=== PATIENT | male | born 1960 | race Caucasian/White ===

== ENCOUNTER → 2017-10-06 | Outpatient (CLI) | payer OTHER ==
[2017-10-06 12:50] LABS: BASO % 0.3 %; BASO ABS # 0.02 K/uL (0-0.2); EOS % 4.9 %; EOS ABS # 0.35 K/uL (0-0.5); HEMATOCRIT 48.6 % (42-52); HEMOGLOBIN 16.4 g/dL (14.0-18.0); IG# 0.01 K/uL (0.00-0.02); LYMPH % 22.4 %; LYMPH ABS # 1.61 K/uL (1.2-3.4); MEAN CORPUSCULAR HEMOGLOBIN 33.7 pg (25-34); MEAN CORPUSCULAR HGB CONC 33.7 g/dl (32-36); MEAN PLATELET VOLUME 11.1 fL (7.4-10.4); MONO % 8.2 %; MONO ABS # 0.59 K/uL (0.11-0.59); NEUT % 64.1 %; PLATELET COUNT 274 K/uL (130-400); RED CELL DISTRIBUTION WIDTH CV 12.8 % (11.5-14.5); RED CELL DISTRIBUTION WIDTH SD 46.4 fL (36.4-46.3); WHITE BLOOD COUNT 7.18 K/uL (4.8-10.8)
[2017-10-06 13:21] LABS: ALBUMIN 3.2 gm/dl (3.4-5.0); ALKALINE PHOSPHATASE 87 U/L (45-117); ALT/SGPT 34 U/L (12-78); AST/SGOT 16 U/L (15-37); BLOOD UREA NITROGEN 15 mg/dl (7-18); CALCIUM 8.7 mg/dl (8.5-10.1); CARBON DIOXIDE 27 mmol/L (21-32); CHOLESTEROL 147 mg/dl (0-200); CREATININE 0.96 mg/dl (0.60-1.40); GLUCOSE 113 mg/dl (70-99); LDL CHOLESTEROL CALCULATED 90 mg/dl; POTASSIUM 3.8 mmol/L (3.5-5.1); SODIUM 139 mmol/L (136-145)
[2017-10-06 13:26] LABS: TOTAL PROTEIN 7.9 gm/dl (6.4-8.2)
== END | disposition home or self-care (01) ==
LOC: C.LABBFT 07:41
PROVIDERS: ATTEND Internal Medicine
DX: I10 Essential (primary) hypertension (principal); Z12.5 Encounter for screening for malignant neoplasm of prostate

== ENCOUNTER 2019-06-28 04:50 | Inpatient (IN) ==
--- NOTE | 2019-05-20 11:55 | Anesthesiology Consultation ---
Date of Service May 20, 2019 Assessment & Plan (1) Encounter for pre-operative examination: Chart Review Chart Review: Pending: Refer to Additional Notes / Consult section (awaiting preop testing results) History Surgery Operation Date: 06/28/19 07:00 Proposed Procedures p Left Total Hip Arthroplasty - Jax Gutierrez MD Height/Weight Height: 6 ft Weight: 121.7 kg Allergies Allergy/AdvReac Type Severity Reaction Status Date / Time No Known Allergies Allergy Verified 05/13/19 08:59 Medications Home Medications Medication Instructions Recorded Confirmed Last Taken krill oil 500 mg capsule 1 cap PO QAM cap 01/26/19 05/13/19 Unknown losartan 50 mg tablet 50 mg PO QPM #90 tab 01/26/19 05/13/19 Unknown acetaminophen [Tylenol Arthritis 1,300 mg PO Q12H PRN 05/13/19 05/13/19 Unknown Pain] glucosamine-chondroitin [Osteo 1 tab PO BID 05/13/19 05/13/19 Unknown Bi-Flex] meloxicam 7.5 mg PO QAM 05/13/19 05/13/19 Unknown multivitamin 1 tab PO QAM 05/13/19 05/13/19 Unknown Past Medical History Medical History Hypertension Exercise / Class Metabolic Activity II 4-5 Yardwork/Stairs/Walk up hill Past Family History Family History Father Family history of diabetes mellitus Past Surgical History Surgical History History of colonoscopy History of herniorrhaphy AGE 3 Social History Smoking Status: Never smoker Do You Dip or Chew Tobacco: No Hx Alcohol Use: No Hx Substance Use: No Physical Exam Vital Signs Last Vital Signs Temp 97.8 F 05/20/19 11:43 Pulse 70 05/20/19 11:43 Resp 18 05/20/19 11:43 BP 130/79 05/20/19 11:43 Pulse Ox 96 05/20/19 11:43 ENMT Mouth: no dentition abnormality Thyromental Distance: > or= 3.5 Finger Breadths Mallampati Class: II Neck normal visual inspection Respiratory normal respiratory effort Auscultation: lungs clear to auscultation bilaterally Cardiovascular Rate/Rhythm: regular rate and regular rhythm Testing Electrocardiogram Date: 05/20/19 Findings: + NSR @ (70 bpm)
--- NOTE | 2019-05-20 12:30 | XRay Report ---
XR chest Pre-admission PA/Lat HISTORY: Preop. COMPARISON: None. FINDINGS: The lungs are clear. Cardiac silhouette is normal in size. No pleural effusions. No pneumot horax. IMPRESSION: No acute process. Electronically signed by: Jaun Sabillon M.D. 05/20/2019 12:28 PM
[2019-05-20 14:00] LABS: Basophils # (auto) 0.03 K/uL (0-0.2); Basophils % (auto) 0.3 %; Eosinophils # (auto) 0.54 K/uL (0-0.5); Eosinophils % (auto) 5.2 %; Hematocrit (blood only) 46.7 % (42-52); Hemoglobin 16.2 g/dL (14.0-18.0); Immature Granulocytes # (auto) 0.02 K/uL (0.00-0.02); Immature Granulocytes % (auto) 0.2 %; Lymphocytes # (auto) 2.04 K/uL (1.2-3.4); Lymphocytes % (auto) 19.8 %; Mean Corpuscular Hemoglobin 34.7 pg (25-34); Mean Corpuscular Hgb Conc 34.7 g/dL (32-36); Monocytes # (auto) 1.17 K/uL (0.11-0.59); Monocytes % (auto) 11.4 %; Neutrophils % (auto) 63.1 %; Platelet Count 271 K/uL (130-400); RDW Coefficient of Variation 13.3 % (11.5-14.5); RDW Standard Deviation 48.3 fL (36.4-46.3); Red Blood Count 4.67 M/uL (4.7-6.1)
[2019-05-20 14:10] LABS: Partial Thromboplastin Time 27.3 Seconds (21.0-31.0); Prothrombin Time 10.6 Seconds (9.0-12.0)
[2019-05-20 14:23] LABS: Calcium 8.8 mg/dl (8.5-10.1); Est GFR (African American) 109.2; Est GFR (Non-African American) 94.3; Potassium 4.6 mmol/L (3.5-5.1)
--- NOTE | 2019-06-24 18:05 | History and Physical Report ---
DATE OF ADMISSION: 06/28/2019 CHIEF COMPLAINT: Left hip pain. HISTORY OF PRESENT ILLNESS: A 59-year-old gentleman who is referred by my partner for treatment of his left hip. He has got 2-year history of gradually increasing pain and discomfort in his left hip. He has been through extensive conservative treatment over the past years. He was initially treated at [facility] with injections, which gave him some temporary relief only. His symptoms progressed since then. He describes buttock pain, groin pain, thigh pain. He limps more as the day goes on. He has nighttime discomfort. He has difficulty putting his shoes and socks on. He would like to have his left hip fixed. PAST MEDICAL HISTORY: Significant for: 1. Hypertension. 2. Sleep apnea. 3. Mild obesity, BMI of 36. 4. Low back pain. PAST SURGICAL HISTORY: Includes herniorrhaphy. ALLERGIES: None. CURRENT MEDICATIONS: 1. Centrum Silver. 2. Fish oil. 3. Osteo Bi-Flex. 4. Losartan. 5. Mobic. SOCIAL HISTORY: A 59-year-old male. He is . No significant drug or alcohol use. FAMILY HISTORY: Noncontributory. REVIEW OF HISTORY: Negative for diabetes, neurologic problem, vascular problems or bleeding disorders. Denies any chest pain or shortness of breath. No history of DVT or PE. No known bleeding problems. PHYSICAL EXAMINATION: GENERAL: Reveals a healthy, pleasant middle-aged male who looks to be in excellent health. HEENT: Benign. NECK: Supple, no lymphadenopathy. LUNGS: Clear to auscultation. HEART: Has a regular rate and rhythm. ABDOMEN: Soft, nontender, nondistended. EXTREMITIES: Grossly neurovascularly intact except as follows: Examination of the left hip reveals the patient ambulates with a significant limp. He limps on his left side. Leg lengths clinically appear pretty equal. Hip is very stiff. He can internally rotate to -15 and external rotation to about 20 degrees. He has pain with any type of hip internal rotation. No knee effusion. Normal knee motion. He is neurologically intact. X-RAYS: X-rays of the left hip were reviewed. It shows advanced left hip DJD. He has got complete loss of his superior joint space. He has got collapse of his femoral head with flattening of the femoral head and cystic changes on the femoral and acetabular sides. He has got osteophytes around the femoral head and acetabulum. ASSESSMENT: A 59-year-old male with a 2-year history of increasing left hip pain and discomfort, unresponsive to conservative treatment. He would like to have his hip fixed. PLAN: We will take him to the operating room and do a left total hip replacement. The risks and benefits of this procedure were explained to the patient including but not limited to DVT, PE, , infection, neurological injury, vascular injury, bleeding problem, pain, limited range of motion, stiffness, failure to relieve symptoms, incomplete relief of symptoms, need for further surgery in the future, fracture, leg length inequality, nerve palsy, dislocation, need for revision surgery, etc. The patient understands and desires to proceed. Informed consent was obtained. As far as discharge plans, he is planning to be discharged to home using [facility] home health program.
[2019-06-28] MEDS ORDERED: LR 500ML BOLUS, THEN 15ML/HR IV SCH (06:00)
[2019-06-28] MEDS ORDERED: CEFAZOLIN 2000MG 2,000 MG/15 ML SYR IV SCH (06:00)
[2019-06-28] MEDS ORDERED: TRANEXAMIC ACID 1,000 MG **IV Pre-op IV SCH (06:00)
[2019-06-28] MEDS ORDERED: LR 60ML/HR IV SCH (06:00)
[2019-06-28] MEDS ORDERED: METOCLOPRAMIDE HCL 10 MG TABLET PO SCH (06:00)
[2019-06-28] MEDS ORDERED: ACETAMINOPHEN 500 MG TAB PO SCH (06:00)
[2019-06-28] MEDS ORDERED: FAMOTIDINE 20 MG TAB PO SCH (06:00)
[2019-06-28] MEDS ORDERED: SCOPOLAMINE 1.5 MG TDSY TD SCH (06:00)
[2019-06-28] MEDS ORDERED: GABAPENTIN 600 MG DOSE PO SCH (06:00)
[2019-06-28] MEDS ORDERED: CEFAZOLIN 3000MG 72.5 ML IV SCH (06:00)
[2019-06-28] MEDS ORDERED: BUPIVACAINE 0.5 % 5 MG/1 ML PF 10ML VIAL ONE (06:07)
[2019-06-28] MEDS ORDERED: MoRPHine SULFATE PF 1 MG/ML 10 ML AMP/VIAL ONE (06:28)
[2019-06-28] MEDS ORDERED: fentaNYL citrate 100 MCG/2 ML VIAL ONE (06:29)
[2019-06-28] MEDS ORDERED: MIDAZOLAM HCL 1 MG/ML 2ML VIAL ONE (06:29)
[2019-06-28] MEDS ORDERED: LIDOCAINE HCL 2% 2 ML VIAL/AMP(20MG/ML) INFIL ONE (06:30)
[2019-06-28] MEDS ORDERED: BACITRACIN INJ 50,000 UNIT VIAL ONE (06:30)
[2019-06-28] MEDS ORDERED: EPINEPHrine INJ 1 MG/ML AMP ONE (06:30)
[2019-06-28] MEDS ORDERED: PROPOFOL IV EMULSION 10 MG/ML 20 ML VIAL IV ONE (06:30)
[2019-06-28] MEDS ORDERED: BUPIVACAINE 0.5 % 5 MG/1 ML MPF 30ML VIAL ONE (06:30)
[2019-06-28] MEDS ORDERED: ONDANSETRON INJ 2 MG/ML 2 ML VIAL ONE (06:30)
--- NOTE | 2019-06-28 06:54 | History & Physical Bridge Note ---
Date of Service June 28, 2019 History & Physical Bridge Note I have examined the patient, reviewed the History & Physical and in the interval since the performance of the History & Physical I have noted the following changes of clinical significance: no changes noted
[2019-06-28] MEDS ORDERED: PHENYLEPHRINE 100MCG/ML 5ML SYR ONE (07:24)
[2019-06-28] MEDS ORDERED: ePHEDrine sulfate 50 MG/ML AMP IV PRN (07:25)
[2019-06-28] MEDS ORDERED: LACTATED RINGER'S 500 ML IV PRN (07:25)
[2019-06-28] MEDS ORDERED: MoRPHine SULFATE PF 1 MG/ML 10 ML AMP/VIAL INT SPINAL ONE (07:25)
[2019-06-28] MEDS ORDERED: NALOXONE HCL 0.08 MG in SYRINGE 1.8 ML IV PRN (07:25)
[2019-06-28] MEDS ORDERED: ONDANSETRON INJ 2 MG/ML 2 ML VIAL IV PRN (07:25)
[2019-06-28] MEDS ORDERED: MEPERIDINE HCL 25 MG/ML CARP IV PRN (07:25)
[2019-06-28] MEDS ORDERED: DiphenhydrAMINE HCL 50 MG/ML VIAL IV PRN (07:25)
[2019-06-28] MEDS ORDERED: NALBUPHINE HCL INJ 10 MG/ML AMP IV PRN (07:25)
[2019-06-28] MEDS ORDERED: NALOXONE HCL 1 MG in SODIUM CHLORIDE 0.9% 1000ML 1,000 ML IV PRN (07:25)
[2019-06-28] MEDS ORDERED: NALOXONE HCL 0.4 MG/1 ML VIAL/CARP IV PRN ×2 (07:25→10:01)
[2019-06-28] MEDS ORDERED: PROMETHAZINE HCL 12.5 MG in SODIUM CHLORIDE 0.9% 50 ML IV PRN (07:25)
[2019-06-28] MEDS ORDERED: KETOROLAC 30 MG/ML VIAL IV PRN (07:25)
[2019-06-28] MEDS ORDERED: DC INTRASPINAL MORPHINE SCH (07:30)
[2019-06-28] MEDS ORDERED: NO NARCOTICS OR SEDATIVES SCH (07:30)
[2019-06-28] MEDS ORDERED: SODIUM CHLORIDE 0.9% 1000ML 1,000 ML IV SCH (07:30)
[2019-06-28] MEDS ORDERED: SODIUM CHLORIDE 0.9% INJ 10 ML VIAL ONE (07:32)
[2019-06-28] MEDS ORDERED: ePHEDrine sulfate 50 MG/ML AMP ONE (07:32)
[2019-06-28] MEDS ORDERED: PHENYLEPHRINE HCL 10 MG/ML VIAL ONE (07:33)
--- NOTE | 2019-06-28 08:34 | Post Operative Brief Note ---
PG Immediate Post Op with CF Date of Surgery June 28, 2019 Pre & Post Diagnosis Operation Date: 06/28/19 07:00 Pre-Op Diagnosis: Left Hip Degenerative Joint Disease Post-Op Diagnosis: Left Hip Degenerative Joint Disease I identified the patient and participated in the time-out.: Yes Procedure Operation Date: 06/28/19 07:00 Actual Procedures p Left Total Hip Arthroplasty, Uncemented(Left) - Jax Gutierrez MD Surgeon Jax Gutierrez MD Stone Banker Maureen, PAC Estimated Blood Loss 300 Findings Consistent with Post-Op Diagnosis Fluids 1000 cc Specimens Specimen Description: Permanent Specimen A: Left femoral head Drains Pendleton Catheter Anesthesia Type Spinal MAC Complications none Disposition Accompanied Patient To Recovery: Yes Disposition: Recovery Room
--- NOTE | 2019-06-28 09:01 | Operative Report ---
DATE OF OPERATION: 06/28/2019 SURGEON: Jax Gutierrez MD COAGULATING BATH MIXER: DILMA Mejia PREOPERATIVE DIAGNOSIS: Left hip degenerative joint disease. POSTOPERATIVE DIAGNOSIS: Left hip degenerative joint disease. PROCEDURE PERFORMED: Left uncemented ceramic on highly cross-linked polyethylene total hip arthroplasty. COMPLICATIONS: None. ESTIMATED BLOOD LOSS: 300 mL. FLUID REPLACEMENT: 1000 mL crystalloid fluid replacement. ANESTHESIA: Spinal. DRAINS: None. SPECIMENS: Left femoral head sent for pathology. OPERATIVE INDICATIONS: The patient is a 59-year-old gentleman who has had a 2-year history of gradually increasing left hip pain and discomfort that has progressed over time. He failed conservative care. X-rays showed advanced hip DJD. He elected to proceed with surgical treatment. OPERATIVE FINDINGS: Operative findings revealed advanced left hip DJD. He had grade 4 [id number] disease of the femoral head and acetabulum. He had a very large anterior acetabular osteophytes and a very stiff hip. OPERATIVE IMPLANTS: Operative implants consisted of: 1. Biomet G7 size 58 mm acetabular shell. 2. A 6.5 cancellous acetabular screws, one at 35 mm length and one at 25 mm length. 3. An apex hole eliminator. 4. A Biomet highly cross-linked polyethylene liner with a 58 mm outer diameter and 36 mm inner diameter. 5. DePuy Corail size 14 KLA femoral stem. 6. A +12/36 mm ceramic articular ball. OPERATIVE PROCEDURE: The patient was taken to the operating room, identified and placed on the operating table in supine position. All contact areas were appropriately padded. IV antibiotics provided by anesthesia team. A spinal anesthetic had been implemented in the holding area. Pendleton catheter was placed in sterile fashion. The patient was then placed in the right lateral decubitus position. An axillary roll was placed. [facility] hip positioner was used for positioning. The left hip and leg were then prepped and draped in usual sterile fashion. A posterolateral approach to the left hip was then performed through a curvilinear incision centered over the greater trochanter. Sharp dissection was carried through subcutaneous tissue down to the level of the IT band and gluteal fascia. The IT band and gluteal fascia were incised longitudinally in line with the skin incision. The underlying greater trochanteric bursa was excised. The piriformis and external rotators were tagged and taken off the posterior aspect of the hip joint capsule. Great care was taken throughout the procedure to protect the sciatic nerve at all times. Posterior capsulotomy was then performed leaving a large flap for later repair. Hip was internally rotated and dislocated. Femoral neck osteotomy cut was made with the final cut 1 cm above the lesser trochanter. Femoral head was removed and sent for pathology. The femur was retracted anteriorly. Attention was then drawn to the acetabulum. The acetabular labrum was excised. The pulvinar fat was excised. Sequential reaming of the acetabulum was then performed beginning with a size 47 and progressing up to 57. A 58 mm Biomet G7 acetabular shell was then placed in about 40 degrees of lateral opening and 20 degrees of anteversion. It was fixed with two 6.5 cancellous acetabular screws. Large anterior osteophytes were removed. A trial liner was placed. Attention was then drawn to the femur. The proximal femur was entered with a [employer] cutter followed by canal finder. I then broached beginning with a size 8 and progressing up to a 14. We got excellent fit at 14. Calcar reamer was used to smoothen off the calcar. I then trialed the hip and the +5 articular ball was fairly stable, but the soft tissue tension was quite lax a little over a centimeter of shuck. I therefore elected to place a longer neck. We placed a +12 neck which seemed to recreate soft tissue tension appropriately. Hip was fully stable in full extension and external rotation and flexion to 90 degrees, internal rotation over [address] I elected to place these implants. All trial implants were removed. An apex hole eliminator was placed. Highly cross-linked polyethylene liner was placed. A DePuy Corail size 14 KLA femoral stem was impacted in position. A +12/36 mm ceramic articular ball was placed and the hip was located. Hip was once again found to be stable. Attention was then drawn toward closing. The wound was irrigated with copious amounts of pulsatile lavage solution. I did inject locally with 60 mL of 0.5% Marcaine with epinephrine. The patient did receive 1 gram of tranexamic acid before the procedure started. I irrigated again. The posterior capsule and external rotators were then repaired through drill holes in the posterior trochanter with #2 Ti-Cron suture. The IT band and gluteal fascia were then closed with #1 PDS suture in running fashion. Subcutaneous tissue was then closed with 2 layers, the deep layer #2 Vicryl suture in a buried interrupted fashion and subcutaneous tissues with 2-0 Dexon suture in a buried interrupted fashion. Skin was closed with skin montez. Leg was then cleaned, dried and a sterile dressing of Xeroform, 4 x 4, sterile ABD pad and a Ioban dressing was then placed over the bandage. The patient was then transferred to the recovery room in stable condition. The patient tolerated the procedure well with no complications. All needle and sponge counts were correct at the end of the operation. I attest to the content of the Intraoperative Record and any orders documented therein. Any exception s are noted below.
--- NOTE | 2019-06-28 09:32 | Anesthesiology Progress Note ---
Date of Service June 28, 2019 Anesthesia Post Procedure Vital Signs Vital Signs: Temp Pulse Pulse Resp BP BP Pulse Ox 06/28/19 09:25 72 15 98/56 L 99 06/28/19 09:15 72 14 105/58 L 97 06/28/19 09:05 70 19 93/62 L 98 06/28/19 08:55 72 15 99/61 L 93 06/28/19 08:45 70 16 104/64 96 06/28/19 08:35 36.2 C L 93 H 18 84/44 L 93 06/28/19 05:36 36.6 C 84 20 147/91 H 96 Pain Intensity Left Hip: Pain Intensity: 0 Transfer of Care Handoff Completed per policy Notes Mental Status: alert / awake / arousable Patient Amnestic to Procedure: Yes Nausea / Vomiting: adequately controlled Pain: adequately controlled Airway Patency, RR, SpO2: stable & adequate BP & HR: stable & adequate Hydration State: stable & adequate Anesthetic Complications: no major complications apparent
--- NOTE | 2019-06-28 09:35 | XRay Report ---
XR hip 1V LT w pelvis CLINICAL HISTORY: 59 years-old Male presenting with IN PACU - A/P PELVIS and LATERAL HIP . TECHNIQUE: Single frontal view of the pelvis and crosstable lateral view of the left hip were obtaine d. COMPARISON: 05/20/2019. FINDINGS: There has been postsurgical changes of total left hip arthroplasty. Expected soft tissue emphysema. N o periprosthetic lucency or fracture. No malalignment. Overlying skin montez noted. Remainder of the bony pelvis intact. IMPRESSION: Expected postsurgical changes status post total left hip arthroplasty. Electronically signed by: John Cramer M.D. 06/28/2019 9:33 AM
[2019-06-28] MEDS ORDERED: bisacodyL 10 MG SUPP PR PRN (10:01)
[2019-06-28] MEDS ORDERED: MAGNESIUM HYDROXIDE SUSP 30 ML UDC PO PRN (10:01)
[2019-06-28] MEDS ORDERED: NON-FORMULARY MEDICATION (Krill Oil 1 CAP) PO SCH (10:01)
[2019-06-28] MEDS ORDERED: ALUMINUM/MAGNESIUM SUSP 30 ML UDC PO PRN (10:01)
[2019-06-28] MEDS ORDERED: TAMSULOSIN HCL 0.4 MG CAP PO PRN (10:01)
[2019-06-28] MEDS ORDERED: MULTIVITAMIN TAB PO SCH (10:01)
[2019-06-28] MEDS: SODIUM CHLORIDE 0.9% 1000ML 1,000 ML IV SCH ×2 (11:17→18:06)
[2019-06-28] MEDS: LOSARTAN POTASSIUM 50 MG TAB PO SCH (11:24)
[2019-06-28] MEDS: ASPIRIN 81 MG ECTAB PO SCH ×2 (11:24→21:09)
[2019-06-28] MEDS: MULTIVITAMIN TAB PO SCH (11:24)
[2019-06-28] MEDS: DOCUSATE SODIUM 100 MG CAP PO SCH ×2 (11:24→21:09)
[2019-06-28] MEDS: ACETAMINOPHEN 500 MG TAB PO SCH ×2 (13:57→21:09)
[2019-06-28] MEDS: CEFAZOLIN 2000MG 2,000 MG/15 ML SYR IV SCH ×2 (14:01→21:58)
[2019-06-28] MEDS ORDERED: TRANEXAMIC ACID 1,000 MG in 0.9 % SODIUM CHLORIDE 100 ML IV SCH (14:36)
[2019-06-28] MEDS: CHECK SCOPOLAMINE PATCH PLACEMENT SCH (15:22)
--- NOTE | 2019-06-28 15:38 | Progress Note ---
DATE: 06/28/2019 SUBJECTIVE: A 59-year-old gentleman now postop from a right total hip replacement. He is doing well. Not having any pain yet. Just feeling tired and little worn out. No chest pain or shortness of breath. Not feeling dizzy or lightheaded. OBJECTIVE: VITAL SIGNS: Temperature 35.0. GENERAL: Pleasant elderly male. He is sitting on bed, looks quite comfortable. He is dozing off here and there, but easily arousable and appropriate. LUNGS: Clear to auscultation. HEART: Has regular rate and rhythm. ABDOMEN: Soft, nontender, nondistended. EXTREMITIES: Grossly neurovascularly intact except as follows. Examination of the left hip reveals the leg lengths to be equal. Dressing is clean, dry and intact. Hip is located. He can dorsiflex and plantarflex his foot appropriately. He is neurologically intact. X-RAYS: X-rays of the left hip from recovery room reviewed. It shows left uncemented total hip arthroplasty. Components looked to be in good position. No signs of problems. ASSESSMENT: A 59-year-old gentleman postop from a left hip replacement, doing well. Pain is controlled. Hip is located. He is neurologically intact. PLAN: 1. DVT prophylaxis including thigh-high TEDs, SCDs, and aspirin twice a day. 2. PT/OT. Weight bear as tolerated. Left total hip protocol. 3. Pain control. Doing well with current pain regimen. 4. IV antibiotics x24 hours. 5. Disposition: Plan to discharge to home with some home health once adequately recovered and medically stable.
[2019-06-28] MEDS: FERROUS GLUCONATE 324 MG TAB PO SCH (17:15)
[2019-06-28] MEDS: ASCORBIC ACID 500 MG TAB PO SCH (17:15)
[2019-06-28] MEDS: SENNA 8.6 MG TAB PO SCH (21:09)
[2019-06-29] MEDS: CHECK SCOPOLAMINE PATCH PLACEMENT SCH (00:01)
[2019-06-29] MEDS: SODIUM CHLORIDE 0.9% 1000ML 1,000 ML IV SCH (00:56)
[2019-06-29] MEDS ORDERED: ONDANSETRON INJ 2 MG/ML 2 ML VIAL IV PRN (01:27)
[2019-06-29] MEDS ORDERED: TRAMADOL HCL 50 MG TABLET PO PRN (01:27)
[2019-06-29] MEDS ORDERED: METOCLOPRAMIDE HCL INJ 5 MG/ML 2 ML VIAL IV PRN (01:27)
[2019-06-29] MEDS ORDERED: HYDROmorphone INJ 0.5 MG/0.5 ML SYR IV PRN (01:27)
[2019-06-29] MEDS: KETOROLAC 30 MG/ML VIAL IV SCH ×4 (02:23→19:12)
[2019-06-29 05:28] LABS: Basophils # (auto) 0.01 K/uL (0-0.2); Basophils % (auto) 0.1 %; Eosinophils # (auto) 0.08 K/uL (0-0.5); Eosinophils % (auto) 0.7 %; Hematocrit (blood only) 39.1 % (42-52); Hemoglobin 13.3 g/dL (14.0-18.0); Immature Granulocytes # (auto) 0.03 K/uL (0.00-0.02); Immature Granulocytes % (auto) 0.3 %; Lymphocytes % (auto) 13.3 %; Mean Corpuscular Hemoglobin 34.5 pg (25-34); Mean Corpuscular Volume 101.6 fL (80-100); Mean Platelet Volume 10.1 fL (7.4-10.4); Monocytes # (auto) 1.62 K/uL (0.11-0.59); Monocytes % (auto) 14.3 %; Neutrophils # (auto) 8.07 K/uL (1.4-6.5); Neutrophils % (auto) 71.3 %; Platelet Count 191 K/uL (130-400); RDW Coefficient of Variation 13.2 % (11.5-14.5); RDW Standard Deviation 49.3 fL (36.4-46.3); Red Blood Count 3.85 M/uL (4.7-6.1); White Blood Count 11.31 K/uL (4.8-10.8)
[2019-06-29] MEDS: ACETAMINOPHEN 500 MG TAB PO SCH ×3 (05:58→21:19)
[2019-06-29 06:00] LABS: BUN Creatinine Ratio 17.3 (10-20); Calcium 8.1 mg/dl (8.5-10.1); Creatinine Clr Calc Pharmacy 110.7 ml/min; Est GFR (African American) 99.2; Est GFR (Non-African American) 85.6; Potassium 4.1 mmol/L (3.5-5.1)
[2019-06-29] MEDS: FERROUS GLUCONATE 324 MG TAB PO SCH ×2 (08:10→17:04)
[2019-06-29] MEDS: ASCORBIC ACID 500 MG TAB PO SCH ×2 (08:10→17:04)
[2019-06-29] MEDS: ASPIRIN 81 MG ECTAB PO SCH ×2 (08:10→21:19)
[2019-06-29] MEDS: DOCUSATE SODIUM 100 MG CAP PO SCH ×2 (08:10→21:20)
[2019-06-29] MEDS: LOSARTAN POTASSIUM 50 MG TAB PO SCH (08:10)
[2019-06-29] MEDS: MULTIVITAMIN TAB PO SCH (08:10)
--- NOTE | 2019-06-29 12:41 | Progress Note ---
DATE: 06/29/2019 SUBJECTIVE: A 59-year-old gentleman postop day #1 from a left hip replacement. He is doing well. Pain has been very well controlled. Therapy is going okay. No chest pain or shortness of breath. Not feeling dizzy or lightheaded. OBJECTIVE: VITAL SIGNS: Temperature 36.8. Vital signs stable. GENERAL: Shows a pleasant, middle-aged male. He is sitting in his bedside chair, looks quite comfortable. EXTREMITIES: Examination of the left hip reveals the dressings to be clean, dry and intact. Thigh is soft and supple. His hip is located. Leg lengths are equal. He can dorsiflex and plantarflex his foot appropriately. He is neurologically intact. LABORATORY DATA: Hemoglobin 13.3. Hematocrit 31.1. Electrolytes are stable. ASSESSMENT: A 59-year-old gentleman postop day #1 from a left hip replacement, doing quite well. Pain is controlled. Hip is located. He is neurologically intact. PLAN: 1. DVT prophylaxis including thigh-high TEDs, SCDs, and aspirin twice a day. 2. PT/OT. Weight bear as tolerated. Left total hip protocol. 3. Pain control, doing pretty well with current pain regimen. 4. Disposition: Plan to discharge to home with some home health once adequately recovered and medically stable.
[2019-06-29] MEDS: SENNA 8.6 MG TAB PO SCH (21:20)
[2019-06-30] MEDS: KETOROLAC 30 MG/ML VIAL IV SCH ×2 (02:00→08:50)
[2019-06-30] MEDS: ACETAMINOPHEN 500 MG TAB PO SCH (05:22)
--- NOTE | 2019-06-30 07:55 | Progress Note ---
DATE: 06/30/2019 SUBJECTIVE: A 59-year-old gentleman postop day 2 from a left hip replacement. He is doing well. Pain is controlled. Therapy went pretty well. No chest pain or shortness of breath. Not feeling dizzy or lightheaded. OBJECTIVE: VITAL SIGNS: Temperature 37.1. Vital signs stable. GENERAL: Shows a pleasant, middle-aged male. He is walking around his room, using a walker and doing quite well. EXTREMITIES: Examination of left hip reveals the dressing to be clean, dry and intact. Thigh is soft and supple. No significant drainage. Hip is located. He is neurologically intact. ASSESSMENT: A 59-year-old gentleman postop day 2 from left hip replacement, doing well. Pain is controlled. PLAN: 1. DVT prophylaxis including thigh-high TEDs, SCDs, and aspirin twice a day. 2. PT/OT. Weight bear as tolerated. Left total hip protocol. 3. Pain control, doing well with current pain regimen. 4. Disposition: Plan to discharge to home with some home health later today.
[2019-06-30] MEDS: FERROUS GLUCONATE 324 MG TAB PO SCH (08:50)
[2019-06-30] MEDS: MULTIVITAMIN TAB PO SCH (08:50)
[2019-06-30] MEDS: ASCORBIC ACID 500 MG TAB PO SCH (08:50)
[2019-06-30] MEDS: DOCUSATE SODIUM 100 MG CAP PO SCH (08:50)
[2019-06-30] MEDS: LOSARTAN POTASSIUM 50 MG TAB PO SCH (08:50)
[2019-06-30] MEDS: ASPIRIN 81 MG ECTAB PO SCH (08:51)
--- NOTE | 2019-07-04 18:36 | Discharge Summary ---
ADMITTING PHYSICIAN AND SURGEON: Dr. Jax Gutierrez. ADMITTING DIAGNOSIS: Left hip degenerative joint disease. SURGERY PERFORMED: Left total hip arthroplasty. SECONDARY DIAGNOSES: Hypertension, sleep apnea, mild obesity, low back pain. CONSULTS: None obtained. HISTORY AND PHYSICAL EXAMINATION: Well documented in the patient's chart. HOSPITAL COURSE: The patient was admitted on 06/28/2019 underwent total hip arthroplasty, tolerated the procedure well. There were no complications. He was transferred to the PACU postoperatively and later to the orthopedic floor for further care. He was given Ancef for antibiotic prophylaxis, NORMA stockings, SCDs and aspirin for DVT prophylaxis. Hemoglobin, hematocrit and vital signs were monitored during his hospital stay and remained stable, did not require any blood transfusions. There were no complications. By postoperative day 2, he was tolerating a regular diet, pain was controlled with oral pain medicine. He was participating in physical therapy. On postop day 2, he was discharged home, set up with home health services, given printed discharge instructions as well as new prescriptions for extra strength Tylenol, aspirin and tramadol. Continue his home medications, continue physical therapy, weightbearing as tolerated, NORMA stockings, total hip precautions. Follow up approximately 2 weeks postop or sooner if there are any problems or concerns.
== END 2019-06-30 11:36 | disposition home health service (06) | DRG 470 ==
LOC: ASU 04:50 → 3E 08:38